=== PATIENT | male | born 1990 | race African-American/Black ===

== ENCOUNTER 2017-08-27 22:07 | Emergency (ER) | payer MEDICAID, OTHER ==
[~2017-08-27] VITALS: Ht 190.5 cm; Wt 80.0 kg
[2017-08-27 22:07] VITALS: BP 139/71; PULSE 62; RESP 16; TEMP 98; O2SAT 100
[2017-08-27 22:44] VITALS: BP 133/83; PULSE 75; O2SAT 98
--- NOTE | 2017-08-27 23:25 | PD ---
HPI Chief Complaint: Medical Clearance Time Seen by Provider: 23:03 Travel History International Travel<30 days: No Contact w/Intl Traveler<30days: No Traveled to known affect area: No History of Present Illness HPI The patient is a 27 year old male who presents to the [facility] emergency department with a history of reportedly not feeling well for the last 3 weeks. He reports that he's had a diminished appetite. He reports that over the last week he's had a sore throat with intermittent chills and generalized weakness. He reports having body aches. He denies having any significant cough or congestion. He denies having any known fevers. He denies having any nausea, vomiting, or diarrhea. Otherwise on review of systems, he denies having any neck pain, chest pain, shortness of breath, abdominal pain, urinary symptoms, or neurologic symptoms. [facility] Past Medical History Narrative Medical The patient's past medical history is reportedly none. Hypertension: Yes Influenza Vaccination: No Past Surgical History Surgical History: No Previous Surgery Social History Alcohol Use: No Tobacco Use: No Substance Use: No Allergies-Medications (Allergen,Severity, Reaction): Coded Allergies: No Known Allergies (Unverified , 08/27/17) Reported Meds & Prescriptions Reported Meds & Active Scripts Active No Active Prescriptions or Reported Medications Review of Systems General / Constitutional: Positive: Chills, No: Fever Eyes: No: Visual changes HENT: Positive: Sore Throat, No: Headaches, Rhinorrhea, Congestion Cardiovascular: No: Chest Pain or Discomfort Respiratory: No: Shortness of Breath Gastrointestinal: No: Nausea, Vomiting, Diarrhea, Abdominal Pain Genitourinary: No: Dysuria Musculoskeletal: Positive: Myalgias, No: Pain Skin: No Rash Neurologic: Positive: Weakness (generalized weakness), No: Focal Abnormalities , Change in Mentation, Slurred Speech, Sensory Disturbance Psychiatric: No: Depression Endocrine: No: Polydipsia Hematologic/Lymphatic: No: Easy Bruising Physical Exam Narrative General: The patient is a well-developed well-nourished male in no acute distress. Head and Neck exam: Head is normocephalic atraumatic. Eyes: EOMI, pupils are equal round and reactive to light. Nose: Midline septum with pink mucous membranes Mouth: Dentition unremarkable. Moist mucus membranes. Posterior oropharynx is not erythematous. No tonsillar hypertrophy. Uvula midline. Airway patent. Neck: No palpable lymphadenopathy. No nuchal rigidity. No thyromegaly. Cardiovascular: Regular rate and rhythm without murmurs, gallops, or rubs. Lungs: Clear to auscultation bilaterally. No wheezes, rhonchi, or rales. Abdomen: Soft, without tenderness to palpation in all 4 quadrants of the abdomen. No guarding, rebound, or rigidity. Normal bowel sounds are audible. No tenderness on palpation of McBurney's point. Extremities: No clubbing, cyanosis, or edema. 2+ pulses in all 4 extremities. No calf tenderness on palpation. Back: No costovertebral angle tenderness to palpation. Neurologic Exam: Grossly nonfocal. Skin Exam: No rash noted. Intact skin that is warm and dry. Data Data Last Documented VS Vital Signs Date Time Temp Pulse Resp B/P (MAP) Pulse Ox O2 Delivery O2 Flow Rate FiO2 08/27/17 22:44 75 133/83 (100) 98 Room Air 08/27/17 22:07 98.0 16 Orders Orders Complete Blood Count With Diff (08/27/17 23:04) Comprehensive Metabolic Panel (08/27/17 23:04) Lipase (08/27/17 23:04) Urinalysis - C+S If Indicated (08/27/17 23:04) Magnesium (Mg) (08/27/17 23:04) Thyroid Stimulating Hormone (08/27/17 23:04) Chest, Single Ap (08/27/17 23:04) Iv Access Insert/Monitor (08/27/17 23:04) Ecg Monitoring (08/27/17 23:04) Oximetry (08/27/17 23:04) Sodium Chlor 0.9% 1000 Ml Inj (Ns 1000 M (08/27/17 23:45) Orthostatic Vital Signs (08/27/17 23:44) Group A Rapid Strep Screen (08/27/17 23:45) Strep Culture (Group A) (08/28/17 00:08) Labs Laboratory Tests Test 08/27/17 23:30 White Blood Count 6.2 TH/MM3 Red Blood Count 5.17 MIL/MM3 Hemoglobin 13.7 GM/DL Hematocrit 41.4 % Mean Corpuscular Volume 80.1 FL Mean Corpuscular Hemoglobin 26.5 PG Mean Corpuscular Hemoglobin Concent 33.1 % Red Cell Distribution Width 12.9 % Platelet Count 253 TH/MM3 Mean Platelet Volume 7.9 FL Neutrophils (%) (Auto) 56.6 % Lymphocytes (%) (Auto) 30.3 % Monocytes (%) (Auto) 7.3 % Eosinophils (%) (Auto) 4.9 % Basophils (%) (Auto) 0.9 % Neutrophils # (Auto) 3.5 TH/MM3 Lymphocytes # (Auto) 1.9 TH/MM3 Monocytes # (Auto) 0.5 TH/MM3 Eosinophils # (Auto) 0.3 TH/MM3 Basophils # (Auto) 0.1 TH/MM3 CBC Comment DIFF FINAL Differential Comment Blood Urea Nitrogen 11 MG/DL Creatinine 1.13 MG/DL Random Glucose 100 MG/DL Total Protein 6.9 GM/DL Albumin 3.4 GM/DL Calcium Level 8.4 MG/DL Magnesium Level 1.8 MG/DL Alkaline Phosphatase 115 U/L Aspartate Amino Transf (AST/SGOT) 29 U/L Alanine Aminotransferase (ALT/SGPT) 32 U/L Total Bilirubin 0.8 MG/DL Sodium Level 138 MEQ/L Potassium Level 3.6 MEQ/L Chloride Level 104 MEQ/L Carbon Dioxide Level 29.5 MEQ/L Anion Gap 5 MEQ/L Estimat Glomerular Filtration Rate 78 ML/MIN Lipase 109 U/L Thyroid Stimulating Hormone 3rd Gen 1.270 uIU/ML MDM Medical Decision Making Medical Screen Exam Complete: Yes Emergency Medical Condition: Yes Medical Record Reviewed: Yes Differential Diagnosis Viral syndrome, versus strep pharyngitis, versus symptomatic anemia versus hypothyroid disorder, versus dehydration, versus electrolyte derangements Narrative Course During the course of the patients emergency department visit, the patients history, examination, and differential diagnosis were reviewed with the patient. The patient was placed on a data center consultant with oximetry and frequent blood pressure monitoring. The patient had IV access obtained and blood work sent for analysis. The patient was initially provided normal saline 1 L IV fluid bolus. The patients laboratory studies were reviewed and remarkable for a white count of 6.2, hemoglobin 13.7, platelets 253 with 4.9 eosinophils. CMP is remarkable for GFR 78, calcium 8.4, lipase 109, TSH 1.27. Radiology studies were reviewed and remarkable for a chest x-ray that shows no acute cardiopulmonary disease. The patient is resting comfortably and feels better, is alert and in no distress. The patients results and examination findings were discussed with the patient. The repeat examination is unremarkable and benign. The history, exam, diagnostic testing, and current condition do not suggest any significant pathology to warrant further testing, continued ED treatment, admission, or surgical evaluation at this point. The vital signs have been stable. The patient does not have uncontrollable pain, intractable vomiting, or other significant symptoms. The patient's condition is stable and appropriate for discharge. The patient will pursue further outpatient evaluation with a primary care physician or other designated or consulting physician as indicated in the discharge instructions. The patient expressed understanding and was agreeable with this plan. Diagnosis Primary Impression: Generalized weakness Additional Impression: Viral syndrome Referrals: [facility] 1 week Patient Instructions: General Instructions, Viral Syndrome (ED), Weakness (ED) Med/Other Pt SpecificInfo: No Change to Meds Scripts No Active Prescriptions or Reported Meds Disposition: 01 DISCHARGE HOME Condition: Stable Kayleigh Gutierres MD Aug 27, 2017 23:25
--- NOTE | 2017-08-27 23:41 | RADRPT ---
EXAM DATE/TIME: 08/27/2017 23:22 [facility] COMPARISON: No previous studies available for comparison. INDICATIONS : Cough. MEDICAL HISTORY : None. SURGICAL HISTORY : None. ENCOUNTER: Initial ACUITY: 1 day PAIN SCORE: 0/10 LOCATION: Bilateral chest FINDINGS: A single view of the chest demonstrates the lungs to be symmetrically aerated without evidence of mas s, infiltrate or effusion. The cardiomediastinal contours are unremarkable. Osseous structures are intact. CONCLUSION: No acute disease. Erwin Raman MD on August 27, 2017 at 23:39 Board Certified Radiologist. This report was verified electronically.
[2017-08-27 23:44] LABS: AUTOMATED NEUTROPHIL # 3.5 TH/MM3 (1.8-7.7); BASOPHIL # 0.1 TH/MM3 (0-0.2); BASOPHIL % 0.9 % (0.0-2.0); EOSINOPHIL # 0.3 TH/MM3 (0-0.4); EOSINOPHIL % 4.9 % (0.0-4.0); HEMATOCRIT 41.4 % (39.0-51.0); HEMO FLAGS DIFF FINAL; LYMPH % 30.3 % (9.0-44.0); LYMPHOCYTE # 1.9 TH/MM3 (1.0-4.8); MEAN CELL VOLUME 80.1 FL (80.0-100.0); MEAN CORPUSCULAR HEMOGLOBIN 26.5 PG (27.0-34.0); MEAN CORPUSCULAR HGB CONC 33.1 % (32.0-36.0); MONO % 7.3 % (0.0-8.0); NEUT % 56.6 % (16.0-70.0); PLATELET COUNT 253 TH/MM3 (150-450); RED BLOOD COUNT 5.17 MIL/MM3 (4.50-5.90); RED CELL DISTRIBUTION WIDTH 12.9 % (11.6-17.2); WHITE BLOOD COUNT 6.2 TH/MM3 (4.0-11.0)
[2017-08-27] MEDS ORDERED: SODIUM CHLOR 0.9% 1000 ML INJ 1,000 ML IV ONE (23:45)
[2017-08-28 00:17] LABS: ALT (GPT) 32 U/L (12-78); ANION GAP 5 MEQ/L (5-15); AST (GOT) 29 U/L (15-37); BICARBONATE 29.5 MEQ/L (21.0-32.0); BLOOD UREA NITROGEN 11 MG/DL (7-18); CHLORIDE 104 MEQ/L (98-107); GLOMERULAR FILTRATION RATE 78 ML/MIN (>89); MAGNESIUM 1.8 MG/DL (1.5-2.5); POTASSIUM 3.6 MEQ/L (3.5-5.1); SODIUM (NA) 138 MEQ/L (136-145)
[2017-08-28 00:27] LABS: ALKALINE PHOSPHATASE 115 U/L (45-117); TOTAL BILIRUBIN ADULT 0.8 MG/DL (0.2-1.0)
[2017-08-28 01:57] VITALS: BP 130/79; PULSE 72; RESP 16; O2SAT 96
[2017-08-28] MEDS ORDERED: ACETAMINOPHEN 325 MG TAB PO ONE (02:00)
== END 2017-08-28 02:25 | disposition home or self-care (01) ==
LOC: NEPE 22:07
DX: R53.1 Weakness (principal); B34.9 Viral infection, unspecified; I10 Essential (primary) hypertension
CPT/HCPCS: 71010; 80053; 83690; 83735; 84443; 85025; 87081; 87880; 96360; 99284; J7030

== ENCOUNTER 2017-10-23 03:42 | Emergency (ER) | payer SELFPAY ==
[~2017-10-23] VITALS: Ht 185.4 cm; Wt 91.0 kg
[2017-10-23 03:44] VITALS: BP 141/97; PULSE 69; RESP 14; TEMP 98.1; O2SAT 100
--- NOTE | 2017-10-23 04:16 | PD ---
HPI Chief Complaint: Psychiatric Symptoms Time Seen by Provider: 04:15 Travel History International Travel<30 days: No Contact w/Intl Traveler<30days: No Traveled to known affect area: No PFSH Past Medical History Medical History: Denies Significant Hx Diminished Hearing: No Hypertension: Yes Past Surgical History Surgical History: No Previous Surgery Social History Alcohol Use: No Tobacco Use: No Substance Use: No Allergies-Medications (Allergen,Severity, Reaction): Coded Allergies: No Known Allergies (Unverified , 10/23/17) Reported Meds & Prescriptions Reported Meds & Active Scripts Active No Active Prescriptions or Reported Medications Data Data Last Documented VS Vital Signs Date Time Temp Pulse Resp B/P (MAP) Pulse Ox O2 Delivery O2 Flow Rate FiO2 10/23/17 03:44 98.1 69 14 141/97 (112) 100 Room Air Orders Orders Complete Blood Count With Diff (10/23/17 04:16) Thyroid Stimulating Hormone (10/23/17 04:16) Basic Metabolic Panel (Bmp) (10/23/17 04:16) Psych Screen (10/23/17 04:16) Drug Screen, Random Urine (10/23/17 04:16) Alcohol (Ethanol) (10/23/17 04:16) MDM Scripts No Active Prescriptions or Reported Meds Patt Garcia Oct 23, 2017 04:16
--- NOTE | 2017-10-23 04:22 | PD ---
HPI Chief Complaint: Psychiatric Symptoms Time Seen by Provider: 04:15 Travel History International Travel<30 days: No Contact w/Intl Traveler<30days: No Traveled to known affect area: No History of Present Illness HPI 27-year-old male presents to emergency department requesting a place to sleep. Patient states that he is homeless. He has been walking long distances and he needs to rest his head. Patient was at the [employer] but they asked him to leave. He tells me began raining and that is when he decided to come to the emergency department. He adamantly denies suicidal homicidal ideations. Denies any illicit drug use. He has no other symptoms reported this time. [facility] Past Medical History Medical History: Denies Significant Hx Diminished Hearing: No Hypertension: Yes Past Surgical History Surgical History: No Previous Surgery Social History Alcohol Use: No Tobacco Use: No Substance Use: No Allergies-Medications (Allergen,Severity, Reaction): Coded Allergies: No Known Allergies (Unverified , 10/23/17) Reported Meds & Prescriptions Reported Meds & Active Scripts Active No Active Prescriptions or Reported Medications Review of Systems Except as stated in HPI: all other systems reviewed are Neg Physical Exam Narrative GENERAL: Well-nourished male patient, ambulatory no acute distress. SKIN: Focused skin assessment warm/dry. HEAD: Atraumatic. Normocephalic. EYES: Pupils equal and round. No scleral icterus. No injection or drainage. ENT: No nasal bleeding or discharge. Mucous membranes pink and moist. NECK: Trachea midline. No JVD. CARDIOVASCULAR: Regular rate and rhythm. No murmur appreciated. RESPIRATORY: No accessory muscle use. Clear to auscultation. Breath sounds equal bilaterally. GASTROINTESTINAL: Abdomen soft, non-tender, nondistended. Hepatic and splenic margins not palpable. MUSCULOSKELETAL: No obvious deformities. No clubbing. No cyanosis. No edema. NEUROLOGICAL: Awake and alert. No obvious cranial nerve deficits. Motor grossly within normal limits. Normal speech. Data Data Last Documented VS Vital Signs Date Time Temp Pulse Resp B/P (MAP) Pulse Ox O2 Delivery O2 Flow Rate FiO2 10/23/17 03:44 98.1 69 14 141/97 (112) 100 Room Air Orders MDM Medical Decision Making Medical Screen Exam Complete: Yes Emergency Medical Condition: Yes Medical Record Reviewed: Yes Differential Diagnosis Homelessness Narrative Course 27-year-old male presents to emergency department seeking a place to stay. Patient denies any suicidal homicidal ideations. Denies any acute medical needs. Patient will be medically screened at this time with no urgent or emergent needs medical intervention identified. He is provided resources however for homeless shelters. A medical screening exam was performed: At the time of evaluation the presenting medical condition was determined not to be of an emergent nature. The patient was given the option of receiving additional care, but declined. Patient was given options for additional community resources from which to obtain care. The Patient Has Been advised to seek medical attention for their presenting complaint. The patient has been advised to return to the ER at any time if an emergent condition develops. Diagnosis Primary Impression: Encounter for medical screening examination Scripts No Active Prescriptions or Reported Meds Condition: Patt Beck Oct 23, 2017 04:22
== END 2017-10-23 04:30 | disposition left against medical advice (07) ==
LOC: NEPD 03:42
DX: Z00.00 Encounter for general adult medical examination without abnormal findings (principal); I10 Essential (primary) hypertension; Z59.0 Homelessness
CPT/HCPCS: 99281